=== PATIENT | female | born 1980 | race Hispanic/Latino ===

== ENCOUNTER → 2020-12-04 | Outpatient (CLI) | payer MEDICAID ==
[2020-12-03 11:00] VITALS: BP_SYST 150; BP_SYST 179; BP_SYST 199; BP_DIAS 107; BP_DIAS 90; BP_DIAS 94
[~2020-12-04] MED LIST: LEVO100C4 PO; LOSA100T58 PO
== END | disposition home or self-care (01) ==
LOC: RAH 14:34
PROVIDERS: ATTEND Student in an Organized Health Care Education/Training Program
DX: Z01.818 Encounter for other preprocedural examination (principal); E04.9 Nontoxic goiter, unspecified; R22.1 Localized swelling, mass and lump, neck
CPT/HCPCS: 70490

== ENCOUNTER 2020-12-05 07:47 | Observation (INO) | payer MEDICAID ==
[2020-12-03 11:00] VITALS: BP_SYST 150; BP_SYST 179; BP_SYST 199; BP_DIAS 107; BP_DIAS 90; BP_DIAS 94
[2020-12-03 11:16] LABS: BASOPHILS % (AUTO) 0.8 % (0.0-5.0); EOSINOPHILS % (AUTO) 1.6 % (0.0-8.0); LYMPHOCYTES % (AUTO) 51.4 % (21.0-51.0); MEAN CORPUSCULAR HEMOGLOBIN 27.5 pg (27.0-33.0); MEAN CORPUSCULAR HGB CONC 32.1 g/dL (32.0-36.0); MEAN CORPUSCULAR VOLUME 85.7 fL (79-99); MONOCYTES % (AUTO) 6.8 % (3.0-13.0); NEUTROPHILS % (AUTO) 39.3 % (40.0-77.0); PLATELET COUNT (AUTO) 329 K/uL (130-400); RED BLOOD CELL COUNT(AUTO) 5.02 MIL/uL (4.00-5.50); RED CELL DISTRIBUTION WIDTH 13.1 % (11.0-15.5); WHITE BLOOD COUNT (AUTO) 7.7 K/uL (4.8-10.8)
[2020-12-03 11:39] LABS: ALBUMIN 3.8 g/dL (3.5-5.0); BILIRUBIN,TOTAL 0.3 mg/dL (0.2-1.0); CREATININE 0.7 mg/dL (0.5-1.5); POTASSIUM 3.5 mmol/L (3.5-5.1); TOTAL PROTEIN, SERUM 8.7 g/dL (6.0-8.3)
[2020-12-05] VITALS (22 sets, daily range): BP systolic 126–154; BP diastolic 62–97
[~2020-12-05] VITALS: Ht 160 cm; Wt 85.4 kg
[~2020-12-05 07:47] MED LIST changes: +DEXAMETHASONE SOD PHOSPHATE 10MG/ML 1ML VIAL ONE; +FENTANYL CITRATE PF 50 MCG/1 ML 2ML VIAL ONE; +GLYCOPYRROLATE 1 MG/5 ML SYRINGE ONE; +LIDOCAINE PF 100MG/5ML (2%) SYRINGE 5ML ONE; +MIDAZOLAM HCL 1 MG/ML 2ML VIAL ONE; +NEOSTIGMINE 5MG/5ML SYR IV ONE; +ONDANSETRON 4MG INJ ONE; +PROPOFOL 10 MG/ML 20ML VIAL IV ONE; +ROCURONIUM 10MG/1ML SYR 10 MG/ML ML ONE; +SUCCINYLCHOLINE CHLORIDE 20 MG/ML 10 ML VIAL ONE
[2020-12-05] MEDS ORDERED: PHENYLEPHRINE HCL 10 MG/ML 1ML VIAL IV ONE (07:55)
[2020-12-05] MEDS ORDERED: CEFAZOLIN SODIUM 1 GM VIAL ONE (07:59)
[2020-12-05] MEDS ORDERED: LACTATED RINGERS 1000ML 1,000 ML IV ONE (07:59)
[2020-12-05] MEDS ORDERED: FENTANYL CITRATE PF 50 MCG/1 ML 5ML AMP IV ONE (11:19)
[2020-12-05] MEDS ORDERED: PROPOFOL 10 MG/ML 20ML VIAL IV ONE (11:22)
[2020-12-05] MEDS ORDERED: ROCURONIUM 10MG/1ML SYR 10 MG/ML ML ONE (12:24)
[2020-12-05] MEDS ORDERED: MEPERIDINE-PF 25 MG/ML SYG ONE ×3 (14:38→15:19)
[2020-12-05] MEDS ORDERED: LACTATED RINGERS 1000ML 1,000 ML IV SCH (15:00)
[2020-12-05] MEDS: MORPHINE 2 MG SYG IVP PRN (17:50)
[2020-12-05] MEDS: ACETAMINOPHEN WITH CODEINE 1 TAB TAB PO PRN (19:58)
[2020-12-05] MEDS ORDERED: FLU VACC QS2020-21(6MOS UP)/PF 60 MCG/0.5 ML ML IM ONE (20:00)
[2020-12-06] MEDS: ACETAMINOPHEN WITH CODEINE 1 TAB TAB PO PRN ×2 (00:01→04:03)
[2020-12-06 03:00] VITALS: BP 137/77
[2020-12-06] MEDS: MORPHINE 2 MG SYG IVP PRN (08:54)
== END 2020-12-06 10:45 | disposition home or self-care (01) ==
LOC: DAH 07:47 → DAHIP 07:48 → DAH 07:48 → WSH 15:30
PROVIDERS: ADMIT Student in an Organized Health Care Education/Training Program; ATTEND Student in an Organized Health Care Education/Training Program
DX: D44.0 Neoplasm of uncertain behavior of thyroid gland (principal); Z20.822 Contact with and (suspected) exposure to COVID-19; E04.2 Nontoxic multinodular goiter; E03.9 Hypothyroidism, unspecified; I10 Essential (primary) hypertension; E78.5 Hyperlipidemia, unspecified; E66.9 Obesity, unspecified; Z79.899 Other long term (current) drug therapy; Z68.33 Body mass index [BMI] 33.0-33.9, adult
CPT/HCPCS: 36415; 60240; 80053; 84703; 85025; 88307; 96361; 96374; 96376; A4215; A4221; A4222; A4223; A4649; A4663; A6260; C9803; G0168; G0378 ×19; J0330 ×2; J0690; J1100; J2001; J2175 ×3; J2250; J2370; J2405; J2704 ×2; J2710; J3010 ×2; J3490; J7120 ×3; U0003